=== PATIENT | male | born 1995 | race African-American/Black ===

== ENCOUNTER 2021-03-19 08:07 | Emergency (ER) | payer SELFPAY ==
--- NOTE | ~2021-03-19 | XR_ITS ---
EXAMINATION: XR CHEST CLINICAL INFORMATION: Left-sided chest pain COMPARISON: None TECHNIQUE: 2 views of the chest were obtained. FINDINGS: There is no pneumothorax or pleural reaction. No subcutaneous emphysema or free air beneath the diaphragms. No airspace consolidation or effusion. No hyperinflation. The heart is normal in size. The hilar and mediastinal contours are unremarkable. There is borderline dextrocurvature lower thoracic spine.. XR/XR chest 2V IMPRESSION: Unremarkable examination.
--- NOTE | ~2021-03-19 | CT_ITS ---
EXAMINATION: CT ANGIOGRAM CHEST CLINICAL INFORMATION: Left-sided chest pain. Evaluate for aortic dissection. COMPARISON: Previous chest x-ray from earlier the same day TECHNIQUE: Multiple axial images were obtained through the chest after the administration of 70 mL of Omnipaque 350 intravenous contrast. Extensive vascular post-processing including two-dimensional and three-dimensional reformatted images were created and reviewed on an independent workstation. This CT examination was performed using dose optimization techniques as appropriate, variously including the following: *Automated exposure control *Adjustment of mA and/or kV according to patient size (this includes techniques or standardized protocols for targeted exams where dose is matched to indication/reason for exam; i.e. extremities or head) *Use of iterative reconstruction technique DLP: 308 mGy-cm FINDINGS: The thoracic aorta is normal in caliber. No aneurysm or dissection is seen. Great vessel origins are patent and normal in caliber. No pulmonary embolism is seen. The pulmonary arteries are normal in caliber. Heart is upper normal in size. There is no pericardial effusion. There are no enlarged hilar or mediastinal lymph nodes. The lungs are clear. There is no pleural effusion or pleural thickening. No chest wall mass or enlarged axillary lymph nodes are seen. There is narrowing of the proximal celiac axis and prominent diaphragmatic crura questionable for median arcuate ligament syndrome. Images through the upper abdomen are otherwise unremarkable. Review of bone windows is unremarkable. CT/CT angio chest IMPRESSION: Normal caliber thoracic aorta. No evidence of aneurysm or dissection. Upper normal-size heart. Clear lungs. Narrowing of the proximal celiac axis and prominent diaphragmatic crura questionable for median arcuate ligament syndrome.
[2021-03-19 08:23] VITALS: BP 177/96; PULSE 78; RESP 18; TEMP 36.3; O2SAT 98
[2021-03-19 08:58] VITALS: BP 130/84; PULSE 67; RESP 18; TEMP 36.9; O2SAT 98; BMI 22.8
--- NOTE | 2021-03-19 09:07 | ECG_ITS ---
Test Reason : CP Blood Pressure : / mmHG Vent. Rate : 068 BPM Atrial Rate : 068 BPM P-R Int : 150 ms QRS Dur : 088 ms QT Int : 368 ms P-R-T Axes : 038 014 022 degrees QTc Int : 391 ms Normal sinus rhythm with sinus arrhythmia Early repolarization Normal ECG No previous ECGs available Referred By: Anika Cox Electronically Signed By:BENI SANDERS
--- NOTE | 2021-03-19 09:11 | ED_ITS ---
HPI - Chest Pain General Chief Complaint: General Medical Stated Complaint: difficulty breathing Time Seen by Provider: 03/19/21 08:55 Source: patient Mode of arrival: ambulatory Limitations: no limitations History of Present Illness HPI narrative: 25-year-old male with no significant past medical history presenting to the ED with complaints of atraumatic left-sided chest pain that is sharp in sensation that started around 13:00 after he was already home from work. 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 He reports that he vapes daily. He denies any dizziness, headaches, change of vision, jaw pain, nausea/vomiting, paresthesias, neck pain/stiffness, coughing, sore throat, palpitations, dyspnea on exertion, orthopnea, abdominal pain, lower extremity edema, recent travel or sick contacts, any drug usage such as cocaine or crack or any other drugs. Denies any estrogen use is, hypercoagulation disorder that he is aware of, recent surgery or immobilization or being on any oral contraceptives, no history of malignancies, any family history of sudden or KS/CVA before the age of 50s or 60s. MD complaint: chest pain Onset (ago): day(s) (Since yesterday around 13:00) Timing of current episode: constant and still present Prior episodes: No Onset: during rest Pain location: left chest Pain radiation: back Severity: moderate Quality: sharp Relieving factors: nothing Exacerbating factors: inspiration and movement Treatment prior to arrival: none Risk Factors Coronary artery disease risk factors: none Thoracic aortic dissection risk factors: none Related Data Previous Rx's Medication Instructions Recorded cyclobenzaprine 10 mg tablet 10 mg PO Q8H #10 tab 03/19/21 lidocaine HCl 4 % topical cream 1 appl TOPICAL BID PRN #120 g 03/19/21 (Aspercreme (lidocaine HCl)) naproxen 500 mg tablet 500 mg PO BID PRN #10 tab 03/19/21 Allergies Allergy/AdvReac Type Severity Reaction Status Date / Time No Known Allergies Allergy Verified 03/19/21 09:01 Review of Systems Review of Systems: Constitutional : No Weight loss, No Fever, No Chills, No Night Sweats, No Fatigue, No Malaise ENT/Mouth : No Hearing loss, No Ear Pain, No Nasal Congestion, No Sinus Pain, No Hoarseness, No sore throat, No Rhinorrhea, No Swallowing Difficulty Eyes: No Eye Pain, No Swelling, No Redness, No Foreign Body, No Discharge, No Vision Changes Cardiovascular : Positive left-sided chest pain, No SOB, no Dyspnea on Exertion, No Orthopnea, No Edema, No extremity swelling, No Palpitations Respiratory : No Cough, No Sputum, No Wheezing, No Dyspnea Gastrointestinal : No Nausea, No Vomiting, No Diarrhea, No abdominal Pain, No Hematochezia, No Melena Genitourinary : No irregular bleeding, No Dysuria, No Urinary Frequency, No Hematuria, No Urinary Incontinence, No Urgency, No Flank Pain, No Urinary Flow Changes, No Hesitancy Musculoskeletal : No joint pain, No Myalgias, No Joint Swelling Skin : No Skin Lesions, No rash Neuro : No Weakness, No Numbness, No Paresthesias, No Loss of Consciousness, No Dizziness, No Headache Psych : No Anxiety/Panic, No Depression, No SI/HI/AH/VH Heme/Lymph: No Bruising, No Bleeding,No Lymphadenopathy Endocrine : No Polyuria, No Polydipsia, No Temperature Intolerance Yes all other systems are reviewed and are negative [facility] Past Medical History Attestation statement: The following information was validated with the patient. Medical History No known health problems Social History Social History Advance Directives: Yes Advance Directives Information Provided: Yes Advance Directives on File: No Physical Exam Vital Signs: Vital Signs: Last Vital Signs Temp 98.2 F 03/19/21 12:20 Pulse 60 03/19/21 12:20 Resp 18 03/19/21 12:20 BP 129/73 03/19/21 12:20 Pulse Ox 98 03/19/21 08:58 Body Mass Index 22.8 vital signs have been reviewed as normal and appeared to be correct. Blood p ressure hypertensive 177/96 then retaken 130/84 Heart rate normal. Respiration rate normal. Temperature normal. Oxygen saturation normal. Appearance: Alert. Oriented X3. No acute distress. Head: Normal external exam. Normocephalic. Atraumatic. Eyes: PERRLA. EOMI. Conjunctiva and sclera normal. Eyelids normal. ENT:Pharynx normal. Uvula midline. Moist mucous membranes. No trismus noted. No drooling noted. No muffled voice noted. Neck: Normal inspection. Neck supple. FROM. No adenopathy. Thyroid Normal. No meningeal signs. No neck mass noted. CVS: Normal heart rate and rhythm. Heart sound normal. Pulses normal throughout. No murmurs/rales/gallops. Respiratory: No respiratory distress. Painless inspiration. Breath sounds normal. No wheezes/rales/rhonchi noted. Chest nontender. No accessory muscle usage noted or decreased air movement noted. No rash es/lesion/induration/fluctuance or signs of infection. No crepitus is noted. Abdomen: Soft and nontender. Bowel sounds normal in all 4 quadrants. No distention noted. No organomegaly noted. No visible injury noted. Back: No CVA tenderness. Full range of motion noted. No rashes/lesion/induration/fluctuance or signs of infection noted. Skin: Skin warm and dry. Normal skin color. Normal skin turgor. No rashes/lesions/lacerations noted. Extremities: No lower extremity edema. No calf tenderness is noted. Extremities exhibit normal range of motion. Extremities nontender. Neuro: Oriented X 3. No motor deficit. No sensory deficit. Reflexes normal. Normal steady gait. No focal neuro deficits noted. Vascular: + radial pulses/+ 2 distal pedal pulses/+2 dorsalis pedis b/l. Normal cap refill. No cyanosis noted to upper extremity nails and lower extremity toes nails. Course Course Course Narrative: 9am - 25-year-old male with no significant past medical history presenting to the ED with complaints of atraumatic left-sided chest pain that is sharp in sensation that started around 13:00 after he was already home from work. 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 He reports that he vapes daily. Patient is PERc negative. Plan: Labs, CXR, EKG. Provide naproxen and Flexeril then re-evaluate. Reevaluation(s) Reevaluation #1: - patient with an elevated white blood cell count at 12,000. ALT 51. Total CPK 598. Two sets of troponin 3 hours apart negative less than 3.5. Patient negative for COVID/RSV/flu. EKG we obtained 2 of them and both of them appear within normal limits with early repolarization confirm with both Dr. Rose and Dr. Ladd's. - D-dimer was also negative. CT a of chest for dissection negative for dissection. - therefore at this time will DC home with symptomatic treatment along with instructions return if any new or worsening symptoms to follow up with primary care provider. Patient understands agrees with this plan. Time: 13:04 [facility] - Chest Pain Medical Records Data Attestation: I reviewed the patient's medical records. Lab Data Attestation: I reviewed the patient's lab results. Result diagrams: 03/19/21 09:33 03/19/21 09:33 Labs: Lab Results 03/19/21 03/19/21 03/19/21 Range/Units 09:33 09:33 09:33 WBC 12.0 H (4.8-10.8) X10*3/uL RBC 4.99 (4.60-5.80) X10*6/uL Hgb 14.4 (14.0-18.0) g/dl Hct 43.5 (42-52) % MCV 87.2 (80-98) fL MCH 28.9 (27.0-33.0) pg MCHC 33.1 (31.0-36.0) g/dl RDW 12.4 (11.0-16.0) % Plt Count 198 (160-400) X10*3/uL MPV 12.8 H (9.4-12.4) fL Immature Gran % (Auto) 0.3 (0.0-0.4) % Neut % (Auto) 72.6 (45-73) % Lymph % (Auto) 18.6 L (20-40) % Wilkin % (Auto) 7.3 (2-11) % Eos % (Auto) 1.0 (0-4) % Baso % (Auto) 0.2 (0-2) % Lymph # (Auto) 2.2 (1.2-4.9) X10*3/uL Wilkin # (Auto) 0.9 (0.1-1.2) X10*3/uL Eos # (Auto) 0.1 (0.0-0.4) X10*3/uL Baso # (Auto) 0.0 (0.0-0.2) X10*3/uL Abs Immat Gran (auto) 0.04 H (0.00-0.03) X10*3/uL Absolute Neuts (auto) 8.7 H (2.0-8.3) X10*3/uL Absolute Nucleated RBC 0.000 (0.0-0.012) X10*3/uL Nucleated RBC % (auto) 0.0 (0.0-0.2) /100WBC PT 11.6 (9.9-13.0) SEC INR 1.0 (0.9-1.1) D-Dimer < 200 NG/ML Sodium 138 (135-145) mmol/L Potassium 4.4 (3.3-5.1) mmol/L Chloride 105 (96-108) mmol/L Carbon Dioxide 28 (22-29) mmol/L Anion Gap 9 L (12-20) BUN 10 (9-16) mg/dL Creatinine 1.00 (0.5-1.4) mg/dL Estim Creat Clear Calc 110.5 Estimated GFR > 60 POC Glucose (60-115) mg/dL Random Glucose 96 (60-115) mg/dL Calcium 9.9 (8.4-10.2) mg/dL Magnesium 2.0 (1.6-2.6) mg/dL Total Bilirubin 0.7 (0.0-1.0) mg/dL AST 28 (5-37) U/L ALT 51 H (0-40) U/L Alkaline Phosphatase 45 (39-117) U/L Total Creatine Kinase 598 H (38-174) U/L Troponin I High Sens (<3.5-35.0) ng/L Total Protein 7.0 (6.5-8.0) g/dL Albumin 4.4 (3.5-5.0) g/dL Coronavirus (PCR) (Negative) Influenza Type A (PCR) (Negative) Influenza Type B (PCR) (Negative) RSV RNA Qual (PCR) (Negative) 03/19/21 03/19/21 03/19/21 Range/Units 09:33 10:06 12:22 WBC (4.8-10.8) X10*3/uL RBC (4.60-5.80) X10*6/uL Hgb (14.0-18.0) g/dl Hct (42-52) % MCV (80-98) fL MCH (27.0-33.0) pg MCHC (31.0-36.0) g/dl RDW (11.0-16.0) % Plt Count (160-400) X10*3/uL MPV (9.4-12.4) fL Immature Gran % (Auto) (0.0-0.4) % Neut % (Auto) (45-73) % Lymph % (Auto) (20-40) % Wilkin % (Auto) (2-11) % Eos % (Auto) (0-4) % Baso % (Auto) (0-2) % Lymph # (Auto) (1.2-4.9) X10*3/uL Wilkin # (Auto) (0.1-1.2) X10*3/uL Eos # (Auto) (0.0-0.4) X10*3/uL Baso # (Auto) (0.0-0.2) X10*3/uL Abs Immat Gran (auto) (0.00-0.03) X10*3/uL Absolute Neuts (auto) (2.0-8.3) X10*3/uL Absolute Nucleated RBC (0.0-0.012) X10*3/uL Nucleated RBC % (auto) (0.0-0.2) /100WBC PT (9.9-13.0) SEC INR (0.9-1.1) D-Dimer NG/ML Sodium (135-145) mmol/L Potassium (3.3-5.1) mmol/L Chloride (96-108) mmol/L Carbon Dioxide (22-29) mmol/L Anion Gap (12-20) BUN (9-16) mg/dL Creatinine (0.5-1.4) mg/dL Estim Creat Clear Calc Estimated GFR POC Glucose 85 (60-115) mg/dL Random Glucose (60-115) mg/dL Calcium (8.4-10.2) mg/dL Magnesium (1.6-2.6) mg/dL Total Bilirubin (0.0-1.0) mg/dL AST (5-37) U/L ALT (0-40) U/L Alkaline Phosphatase (39-117) U/L Total Creatine Kinase (38-174) U/L Troponin I High Sens < 3.5 (<3.5-35.0) ng/L Total Protein (6.5-8.0) g/dL Albumin (3.5-5.0) g/dL Coronavirus (PCR) NEGATIVE (Negative) Influenza Type A (PCR) NEGATIVE (Negative) Influenza Type B (PCR) NEGATIVE (Negative) RSV RNA Qual (PCR) NEGATIVE (Negative) 03/19/21 Range/Units 12:26 WBC (4.8-10.8) X10*3/uL RBC (4.60-5.80) X10*6/uL Hgb (14.0-18.0) g/dl Hct (42-52) % MCV (80-98) fL MCH (27.0-33.0) pg MCHC (31.0-36.0) g/dl RDW (11.0-16.0) % Plt Count (160-400) X10*3/uL MPV (9.4-12.4) fL Immature Gran % (Auto) (0.0-0.4) % Neut % (Auto) (45-73) % Lymph % (Auto) (20-40) % Wilkin % (Auto) (2-11) % Eos % (Auto) (0-4) % Baso % (Auto) (0-2) % Lymph # (Auto) (1.2-4.9) X10*3/uL Wilkin # (Auto) (0.1-1.2) X10*3/uL Eos # (Auto) (0.0-0.4) X10*3/uL Baso # (Auto) (0.0-0.2) X10*3/uL Abs Immat Gran (auto) (0.00-0.03) X10*3/uL Absolute Neuts (auto) (2.0-8.3) X10*3/uL Absolute Nucleated RBC (0.0-0.012) X10*3/uL Nucleated RBC % (auto) (0.0-0.2) /100WBC PT (9.9-13.0) SEC INR (0.9-1.1) D-Dimer NG/ML Sodium (135-145) mmol/L Potassium (3.3-5.1) mmol/L Chloride (96-108) mmol/L Carbon Dioxide (22-29) mmol/L Anion Gap (12-20) BUN (9-16) mg/dL Creatinine (0.5-1.4) mg/dL Estim Creat Clear Calc Estimated GFR POC Glucose (60-115) mg/dL Random Glucose (60-115) mg/dL Calcium (8.4-10.2) mg/dL Magnesium (1.6-2.6) mg/dL Total Bilirubin (0.0-1.0) mg/dL AST (5-37) U/L ALT (0-40) U/L Alkaline Phosphatase (39-117) U/L Total Creatine Kinase (38-174) U/L Troponin I High Sens < 3.5 (<3.5-35.0) ng/L Total Protein (6.5-8.0) g/dL Albumin (3.5-5.0) g/dL Coronavirus (PCR) (Negative) Influenza Type A (PCR) (Negative) Influenza Type B (PCR) (Negative) RSV RNA Qual (PCR) (Negative) Imaging Data Chest x-ray: Attestation: I personally reviewed and interpreted this imaging study as follows: Radiologist's impression: FINDINGS: There is no pneumothorax or pleural reaction. No subcutaneous emphysema or free air beneath the diaphragms. No airspace consolidation or effusion. No hyperinflation. The heart is normal in size. The hilar and mediastinal contours are unremarkable. There is borderline dextrocurvature lower thoracic spine.. XR/XR chest 2V IMPRESSION: Unremarkable examination. CTA of chest for aortic dissection: Attestation: I personally reviewed and interpreted this imaging study as follows: Radiologist's impression: FINDINGS: The thoracic aorta is normal in caliber. No aneurysm or dissection is seen. Great vessel origins are patent and normal in caliber. No pulmonary embolism is seen. The pulmonary arteries are normal in caliber. Heart is upper normal in size. There is no pericardial effusion. There are no enlarged hilar or mediastinal lymph nodes. The lungs are clear. There is no pleural effusion or pleural thickening. No chest wall mass or enlarged axillary lymph nodes are seen. There is narrowing of the proximal celiac axis and prominent diaphragmatic crura questionable for median arcuate ligament syndrome. Images through the upper abdomen are otherwise unremarkable. Review of bone windows is unremarkable.? CT/CT angio chest IMPRESSION: Normal caliber thoracic aorta. No evidence of aneurysm or dissection. Upper normal-size heart. Clear lungs. Narrowing of the proximal celiac axis and prominent diaphragmatic crura questionable for median arcuate ligament syndrome. ECG Data ECG #1: Attestation: I personally reviewed and interpreted this ECG as follows: ECG interpretation date: 03/19/21 ECG interpretation time: 09:26 Interpretation: Normal sinus rhythm with sinus arrhythmia with ventricular rate of 68 with early repolarization no acute ischemic changes are noted. ECG #2: Attestation: I personally reviewed and interpreted this ECG as follows: ECG interpretation date: 03/19/21 ECG interpretation time: 10:58 Interpretation: Sinus bradycardia with ventricular rate of 56 with early repolarization no acute ischemic changes and similar when compared to prior EKG performed an hour ago Discharge Plan Discharge Clinical Impression: Atypical chest pain Patient Disposition: Home, Self-Care Instructions: Chest Pain (ED), Noncardiac Chest Pain (ED) Prescriptions: New lidocaine HCl [Aspercreme (lidocaine HCl)] 4 % cream 1 appl topical BID PRN (Reason: pain) Qty: 120 RF: 0 cyclobenzaprine 10 mg tablet 10 mg PO Q8H Qty: 10 RF: 0 naproxen 500 mg tablet 500 mg PO BID PRN (Reason: pain) Qty: 10 RF: 0 Referrals: Physician,None [Primary Care Provider] - 2 days (your pcp) Stand Alone Forms: Work/School Release Print Language: Serbian
[2021-03-19] MEDS: NaPROXEN 500 MG TABLET PO (09:33)
[2021-03-19] MEDS: Cyclobenzaprine HCl 10 MG TABLET PO (09:33)
[2021-03-19 09:38] LABS: MANUAL DIFF FLAG NO
[2021-03-19 09:43] LABS: Basophils Percent Auto 0.2 % (0-2); Eosinophils Absolute Auto 0.1 X10*3/uL (0.0-0.4); Hematocrit 43.5 % (42-52); Hemoglobin 14.4 g/dl (14.0-18.0); Imm Gran Abs Auto 0.04 X10*3/uL (0.00-0.03); Imm Gran Pct Auto 0.3 % (0.0-0.4); Lymphocytes Absolute Auto 2.2 X10*3/uL (1.2-4.9); Lymphocytes Percent Auto 18.6 % (20-40); Mean Corpuscular HGB Conc 33.1 g/dl (31.0-36.0); Mean Corpuscular Hemoglobin 28.9 pg (27.0-33.0); Mean Corpuscular Volume 87.2 fL (80-98); Mean Platelet Volume 12.8 fL (9.4-12.4); Monocytes Absolute Auto 0.9 X10*3/uL (0.1-1.2); Monocytes Percent Auto 7.3 % (2-11); Neutrophils Absolute Auto 8.7 X10*3/uL (2.0-8.3); Neutrophils Percent Auto 72.6 % (45-73); Platelet Count 198 X10*3/uL (160-400); Red Blood Count 4.99 X10*6/uL (4.60-5.80); Red Cell Distribution Width 12.4 % (11.0-16.0)
[2021-03-19 09:51] LABS: Prothrombin Time 11.6 SEC (9.9-13.0)
[2021-03-19 10:01] LABS: Alanine Aminotransferase 51 U/L (0-40); Albumin Level 4.4 g/dL (3.5-5.0); Alkaline Phosphatase 45 U/L (39-117); Anion Gap 9 (12-20); Aspartate Amino Transferase 28 U/L (5-37); Bilirubin Total 0.7 mg/dL (0.0-1.0); Blood Urea Nitrogen 10 mg/dL (9-16); Calcium 9.9 mg/dL (8.4-10.2); Carbon Dioxide 28 mmol/L (22-29); Chloride 105 mmol/L (96-108); Creatinine Clr Calc Pharmacy 110.5; Estimated Glomerular Filt Rate > 60; Glucose Random 96 mg/dL (60-115); Potassium 4.4 mmol/L (3.3-5.1); Sodium 138 mmol/L (135-145)
[2021-03-19 10:02] LABS: Troponin-I High Sensitivity < 3.5 ng/L (<3.5-35.0)
--- NOTE | 2021-03-19 10:37 | ECG_ITS ---
Test Reason : REPEAT Blood Pressure : / mmHG Vent. Rate : 056 BPM Atrial Rate : 056 BPM P-R Int : 150 ms QRS Dur : 086 ms QT Int : 396 ms P-R-T Axes : 032 010 021 degrees QTc Int : 382 ms Sinus bradycardia Early repolarization Otherwise normal ECG When compared with ECG of 19-MAR-2021 09:26, Heart rate has decreased Referred By: Anika Cox Electronically Signed By:BENI SANDERS
[2021-03-19 10:53] LABS: Influenza A PCR NEGATIVE (Negative); Influenza B PCR NEGATIVE (Negative); Resp Syncy Virus RNA Qual PCR NEGATIVE (Negative); SARS COV2 PCR INHOUSE NEGATIVE (Negative)
[2021-03-19 12:20] VITALS: BP 129/73; PULSE 60; RESP 18; TEMP 36.8
--- NOTE | 2021-03-19 12:27 | PC.NURSE ---
pct to bedside for lab draw pt diaphoretic over chest and forehead pt vss. md stanton aware. iv placed in r ac. pt affect has changed from laughing and smiling to being vague, withdrawn and guarded.
[2021-03-19 12:28] LABS: Glucose, Whole Blood 85 mg/dL (60-115)
[2021-03-19 12:52] LABS: Troponin-I High Sensitivity < 3.5 ng/L (<3.5-35.0)
[2021-03-19 13:29] LABS: D Dimer < 200 NG/ML
[2021-03-19] MEDS: iohexoL 350 MG/ML 100 ML INFUS..BTL IV (13:39)
== END 2021-03-19 14:46 | disposition home or self-care (01) ==
PROVIDERS: Physician Assistant Medical; Emergency Provider Emergency Medicine
DX: R07.89 Other chest pain (principal); R00.1 Bradycardia, unspecified; Z20.822 Contact with and (suspected) exposure to COVID-19
CPT/HCPCS: 0241U; 36415; 71046; 71275; 80053; 82550; 82947; 83735; 84484; 85025; 85379; 85610; 93005; 99284; Q9967